=== PATIENT | male | born 1960 | race Caucasian/White ===

== ENCOUNTER → 2020-10-24 | Outpatient (CLI) | payer OTHER ==
[~2020-10-24] VITALS: Ht 177.8 cm; Wt 83.0 kg
== END ==
LOC: OPSV 09:10
DX: M06.09 Rheumatoid arthritis without rheumatoid factor, multiple sites (principal)
CPT/HCPCS: 96365; 96366; 96375; J1720; J7050; Q5103

== ENCOUNTER → 2020-11-07 | Outpatient (CLI) | payer OTHER ==
[~2020-11-07] VITALS: Ht 177.8 cm; Wt 83.4 kg
== END ==
LOC: OPSV 09:14
DX: M06.09 Rheumatoid arthritis without rheumatoid factor, multiple sites (principal)
CPT/HCPCS: 96365; 96366; 96375; J1720; J7050; Q5103

== ENCOUNTER → 2021-01-02 | Outpatient (CLI) | payer OTHER ==
[~2021-01-02] VITALS: Ht 177.8 cm; Wt 83.4 kg
== END ==
LOC: OPSV 09:01
DX: M06.09 Rheumatoid arthritis without rheumatoid factor, multiple sites (principal)
CPT/HCPCS: 96365; 96366; 96375; J1720; J7050; Q5103

== ENCOUNTER → 2021-02-27 | Outpatient (CLI) | payer OTHER ==
[~2021-02-27] VITALS: Ht 177.8 cm; Wt 83.4 kg
== END ==
LOC: OPSV 11:00
DX: M06.09 Rheumatoid arthritis without rheumatoid factor, multiple sites (principal)
CPT/HCPCS: 96365; 96366; 96375; J1720; J7050; Q5103

== ENCOUNTER → 2021-04-24 | Outpatient (CLI) | payer OTHER ==
[~2021-04-24] VITALS: Ht 177.8 cm; Wt 83.4 kg
== END ==
LOC: OPSV 09:26
DX: M06.09 Rheumatoid arthritis without rheumatoid factor, multiple sites (principal)
CPT/HCPCS: 96365; 96366; 96375; J1720; J7050; Q5103